=== PATIENT | male | born 1985 ===

== ENCOUNTER 2019-12-06 20:45 | Emergency (ER) | payer OTHER ==
[~2019-12-06] VITALS: Ht 165.1 cm; Wt 70.0 kg
[2019-12-06 20:51] VITALS: BP 130/77
[2019-12-06] MEDS ORDERED: ALBU6.7H9 INH (20:57)
== END 2019-12-06 21:13 | disposition home or self-care (01) ==
LOC: ER 20:47
DX: J45.909 Unspecified asthma, uncomplicated (principal); R07.89 Other chest pain; J34.89 Other specified disorders of nose and nasal sinuses; Z79.899 Other long term (current) drug therapy
CPT/HCPCS: 99283